=== PATIENT | male | born 1980 | race African-American/Black ===

== ENCOUNTER 2017-05-07 22:26 | Emergency (ER) | payer SELFPAY ==
[~2017-05-07] VITALS: Ht 188 cm; Wt 86.0 kg
[2017-05-07 23:19] VITALS: BP 161/84; PULSE 78; RESP 16; TEMP 97.8; O2SAT 97
[2017-05-08] MEDS ORDERED: DICL75TA PO (03:25)
[2017-05-08] MEDS ORDERED: IBUPROFEN 800 MG TAB PO ONE (03:30)
--- NOTE | 2017-05-08 03:30 | PD ---
HPI Chief Complaint: Injury Time Seen by Provider: 03:17 Travel History International Travel<30 days: No Contact w/Intl Traveler<30days: No Traveled to known affect area: No History of Present Illness HPI 37-year-old right-hand dominant black male presents emergency department complains of right wrist and hand pain. He states that he had an injury 2 months ago in [place]. He alleges a broken his hand. He reports taking his splint off only after 2 weeks. He had been seen by hand surgeon. He has moved to [facility] now for the past 6 days. 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 He states that he actually dropped several dishes. He presents for evaluation. Pain is mild. He reports tingling on occasion. No persistent sensory loss. PFSH Past Medical History Cancer: Yes (TESTICULAR) Cerebrovascular Accident: Yes (X2) Myocardial Infarction: Yes (X2) Past Surgical History Genitourinary Surgery: Yes (TESTICLE REMOVED) Social History Alcohol Use: Yes Tobacco Use: Yes Substance Use: No Allergies-Medications (Allergen,Severity, Reaction): Coded Allergies: No Known Allergies (Unverified , 05/07/17) Reported Meds & Prescriptions Reported Meds & Active Scripts Active Diclofenac Sodium DR (Diclofenac Sodium) 75 Mg Tabdr 75 Mg PO BID Review of Systems General / Constitutional: No: Fever Eyes: No: Visual changes HENT: No: Headaches Cardiovascular: No: Chest Pain or Discomfort Respiratory: No: Shortness of Breath Gastrointestinal: No: Abdominal Pain Genitourinary: No: Dysuria Musculoskeletal: Positive: Arthralgias, Weakness, Pain, No: Myalgias, Limited ROM, Cramping, Edema Skin: No Rash Neurologic: No: Weakness Psychiatric: No: Depression Endocrine: No: Polydipsia Hematologic/Lymphatic: No: Easy Bruising Physical Exam Narrative GENERAL: This is a well-nourished, well-developed patient, in no apparent distress. SKIN: No rashes, ecchymoses or lesions. Warm and dry. HEAD: Atraumatic. Normocephalic. EYES: PERRL, EOMI, no discharge or injection. No scleral icterus. EARS: Clear NOSE: Nasal turbinates appear normal. THROAT: Mucosa pink and moist. Airway patent. NECK: Trachea midline. supple, moves head freely. LUNGS: Clear to auscultation. CV: Regular in rhythm. ABDOMEN: Soft nontender. EXT: No clubbing cyanosis or edema. Examination of the right upper extremity reveals mild tenderness in the wrist. There is no pain in the hand. He has intact median/ulnar/renal nerves. He has full range of motion. No erythema or warmth. No snuffbox tenderness. Data Data Last Documented VS Vital Signs Date Time Temp Pulse Resp B/P (MAP) Pulse Ox O2 Delivery O2 Flow Rate FiO2 05/07/17 23:19 97.8 78 16 161/84 (109) 97 Room Air Orders Orders Splint Or Brace Apply/Monitor (05/08/17 03:24) Ibuprofen (Motrin) (05/08/17 03:30) MDM Medical Decision Making Medical Screen Exam Complete: Yes Emergency Medical Condition: Yes Medical Record Reviewed: Yes Differential Diagnosis MDM: High Differential diagnoses: Fracture, sprain, strain, dislocation, contusion, neurovascular injury Narrative Course X-rays not indicated at this time. Patient is given a Velcro wrist splint and Motrin 800 mg p.o. This is right wrist pain Diagnosis Primary Impression: Right wrist pain Referrals: [facility] 1 week Patient Instructions: General Instructions Additional Instructions: Rest. Elevation. Ice. Velcro wrist splint. Diclofenac. Follow-up with the [facility] in 1 week. Med/Other Pt SpecificInfo: Prescription(s) given Scripts Diclofenac Sodium DR (Diclofenac Sodium DR) 75 Mg Tabdr 75 MG PO BID, #20 TAB 0 Refills Prov: Pipo Bach MD 05/08/17 Disposition: 01 DISCHARGE HOME Condition: Stable Tom Allen May 08, 2017 03:30
== END 2017-05-08 04:16 | disposition home or self-care (01) ==
LOC: NEPD 22:26
DX: M25.531 Pain in right wrist (principal)
CPT/HCPCS: 99283; L3908